=== PATIENT | female | born 1975 | race Caucasian/White ===

== ENCOUNTER 2020-09-07 22:37 | Emergency (ER) | payer SELFPAY ==
[~2020-09-07] VITALS: Ht 162.6 cm; Wt 88.0 kg
[2020-09-07] MEDS ORDERED: BUPIVACAINE HCL 0.25% 10ML MPF VIAL INJ ONE (23:00)
[2020-09-07] MEDS ORDERED: LIDOCAINE HCL 2% LOCAL INJ 5 ML SDV VIAL INJ ONE ×2 (23:08→23:09)
[2020-09-07] MEDS ORDERED: ONDANSETRON HCL 4 MG ORAL DISINTEGRATING TAB PO ONE (23:15)
[2020-09-07] MEDS ORDERED: TRAMADOL HCL 50 MG TAB PO ONE (23:15)
[2020-09-07] MEDS ORDERED: TRAMADOL HCL 50 MG TAB ONE (23:21)
[2020-09-07] MEDS ORDERED: ACETAMINOPHEN/CODEINE ELIX 120-12 MG/5 ML UDC PO STA (23:21)
[2020-09-07] MEDS ORDERED: ACETAMINOPHEN/CODEINE ELIX 120-12 MG/5 ML UDC ONE (23:24)
[2020-09-07 23:43] VITALS: BP 158/88
== END 2020-09-07 23:43 | disposition home or self-care (01) ==
LOC: FSED 23:00
DX: K08.89 Other specified disorders of teeth and supporting structures (principal); I10 Essential (primary) hypertension
CPT/HCPCS: 99283; J2001; Q0162